=== PATIENT | male | born 1985 | race Caucasian/White ===

== ENCOUNTER 2017-12-18 11:29 | Emergency (ER) | payer SELFPAY ==
[2017-12-18] MEDS ORDERED: NACL 0.9% 1000 ML 1,000 ML ONE (11:40)
[2017-12-18] MEDS ORDERED: DECADRON IV ONE (11:42)
[2017-12-18] MEDS ORDERED: BENADRYL IV ONE (11:42)
[2017-12-18] MEDS ORDERED: NACL 0.9% 1000 ML 1,000 ML IV ONE ×2 (11:43→11:44)
[2017-12-18] MEDS ORDERED: S2 RACEPINEPHRINE 2.25% IH ONE (11:43)
[2017-12-18] MEDS ORDERED: PEPCID IV ONE (11:43)
--- NOTE | 2017-12-18 11:51 | Emergency Department Report ---
HPI - General Time Seen by Provider: 12/18/17 11:42 - HPI HPI: Room 23 The patient is a 32-year-old male presenting with chief complaint of allergic reaction to a bee sting. The patient was stung on his abdomen by a bee just prior to arrival. Patient began complaining of feeling bad as though his throat was closing so his friend transported him to the emergency department. When asked what is bothering him the patient replies he is having difficulty breathing. Patient also complains of chest pain Location: [See above] Duration: Just prior to arrival Quality: [See above] Severity: Moderate Modifying factors: [see above] Context: [see above] Mode of transportation: [not driving] ED Past Medical Hx - Past Medical History Previous Medical History?: No - Surgical History Past Surgical History?: No - Family History Family history: no significant - Social History Smoking Status: Never Smoker - Medications Home Medications: Home Medications Medication Instructions Recorded Confirmed Last Taken Type EPINEPHrine [Epipen 2-Vazquez] 0.3 mg IM ONCE PRN #0.6 ml 12/18/17 Unknown Rx Famotidine [Pepcid] 20 mg PO BID #6 tablet 12/18/17 Unknown Rx Prednisone [predniSONE 10 mg 10 mg PO .TAPER #1 tab.ds.pk 12/18/17 Unknown Rx (6-Day Pack, 21 Tabs)] diphenhydrAMINE [Benadryl CAP] 50 mg PO Q6HR #24 capsule 12/18/17 Unknown Rx ED Review of Systems ROS: Stated complaint: BEE STING ALLERGIC Other details as noted in HPI ENT: other (difficulty breathing) Respiratory: shortness of breath Cardiovascular: chest pain Skin: change in color Physical Exam - Physical Exam Vital Signs: Vital Signs 12/18/17 12/18/17 12/18/17 11:32 11:45 12:00 Temperature Pulse Rate 64 67 Respiratory 14 23 Rate Blood Pressure 111/48 99/54 O2 Sat by Pulse 95 100 100 Oximetry 12/18/17 12/18/17 12/18/17 12:02 12:15 12:30 Temperature 97.9 F Pulse Rate 74 72 80 Respiratory 25 H 18 22 Rate Blood Pressure 88/63 112/66 110/63 O2 Sat by Pulse 100 100 100 Oximetry Physical Exam: GENERAL: The patient is well-developed well-nourished male lying on stretcher appearing flushed. [] HEENT: Normocephalic. Atraumatic. Extraocular motions are intact. Patient has moist mucous membranes. NECK: Supple. Trachea midline. No stridor CHEST/LUNGS: Clear to auscultation. There is no respiratory distress noted. HEART/CARDIOVASCULAR: Regular. There is no tachycardia. There is no gallop rub or murmur. ABDOMEN: Abdomen is soft, nontender. Patient has normal bowel sounds. There is no abdominal distention. SKIN: Sting site visualized, no stinger present. There is no diaphoresis. NEURO: The patient is awake, alert, and oriented. The patient is cooperative. The patient has normal speech MUSCULOSKELETAL: There is no evidence of acute injury. ED Course - Reevaluation(s) Reevaluation #1: 12/18/17 12:10 Patient states he feels better Reevaluation #2: 12/18/17 13:50 Patient states he feels well and has no complaints. Strong warnings given ED Medical Decision Making - Lab Data Result diagrams: 12/18/17 11:49 12/18/17 11:49 Laboratory Tests 12/18/17 12/18/17 12/18/17 11:49 11:49 11:49 WBC 10.1 RBC 5.11 H Hgb 16.5 H Hct 48.7 H MCV 95 H MCH 32 MCHC 34 RDW 13.6 Plt Count 259 Lymph % (Auto) 34.9 [place] % (Auto) 5.0 Eos % (Auto) 1.0 Baso % (Auto) 0.4 Lymph # 3.5 [place] # 0.5 Eos # 0.1 Baso # 0.0 Seg Neutrophils % 58.7 Seg Neutrophils # 5.9 Sodium 140 Potassium 3.7 Chloride 100.0 Carbon Dioxide 19 L Anion Gap 25 BUN 18 Creatinine 1.1 Estimated GFR > 60 BUN/Creatinine Ratio 16 Glucose 193 H Calcium 9.3 Total Creatine Kinase 56 CK-MB (CK-2) < 1.0 CK-MB (CK-2) Rel Index 1.7 Troponin T < 0.010 - EKG Data -: EKG Interpreted by Me EKG shows normal: sinus rhythm Rate: normal - EKG Data When compared to previous EKG there are: previous EKG unavailable Interpretation: other (no ischemic changes seen) - Radiology Data Radiology results: image reviewed (chest x-ray, lateral soft tissue neck x-ray) interpreted by me: Chest x-ray-no focal infiltrates, no pneumothorax Lateral soft tissue neck x-ray-no prevertebral swelling, no evidence of epiglottitis - Differential Diagnosis allergic reaction, anaphylaxis Critical care attestation.: If time is entered above; I have spent that time in minutes in the direct care of this critically ill patient, excluding procedure time. ED Disposition Clinical Impression: Allergic reaction to bee sting, Hymenoptera sting Disposition: TO HOME OR SELFCARE Is pt being admited?: No Does the pt Need Aspirin: No Condition: Stable Instructions: Anaphylaxis (ED), Urticaria (ED) Additional Instructions: Return to the emergency department immediately should you develop worsening symptoms, fever, inability to tolerate food or liquid or any other concerns. Prescriptions: diphenhydrAMINE [Benadryl CAP] 50 mg PO Q6HR #24 capsule EPINEPHrine [Epipen 2-Vazquez] 0.3 mg IM ONCE PRN #0.6 ml PRN Reason: Shortness Of Breath Famotidine [Pepcid] 20 mg PO BID #6 tablet Prednisone [predniSONE 10 mg (6-Day Pack, 21 Tabs)] 10 mg PO .TAPER #1 tab.ds.pk Referrals: PRIMARY CARE,MD [Primary Care Provider] - 3-5 Days GEN JENSEN MD [Staff Physician] - 3-5 Days (Dr. Jensen is an pupil personnel services director. Please follow up with her for further evaluation) Time of Disposition: 13:54
[2017-12-18 12:13] LABS: Basophils % (Auto) 0.4 % (0.0-1.8); Eosinophils # (Auto) 0.1 K/mm3 (0.0-0.4); Hematocrit 48.7 % (35.5-45.6); Hemoglobin 16.5 gm/dl (11.8-15.2); Lymphocytes # (Auto) 3.5 K/mm3 (1.2-5.4); Lymphocytes % (Auto) 34.9 % (13.4-35.0); Mean Corpuscular HGB Conc 34 % (32-34); Mean Corpuscular Hemoglobin 32 pg (28-32); Mean Corpuscular Volume 95 fl (84-94); Monocytes # (Auto) 0.5 K/mm3 (0.0-0.8); Platelet Count 259 K/mm3 (140-440); Red Blood Count 5.11 M/mm3 (3.65-5.03); Red Cell Distribution Width 13.6 % (13.2-15.2)
[2017-12-18 12:32] LABS: BUN/Creatinine Ratio 16; Blood Urea Nitrogen 18 mg/dL (9-20); Calcium 9.3 mg/dL (8.4-10.2); Hemolysis Index 53
[2017-12-18 12:37] LABS: Creatine Kinase MB < 1.0 ng/mL (0.0-4.0)
--- NOTE | 2017-12-18 14:02 | XRay Report ---
AP AND LATERAL SOFT TISSUES OF THE NECK: History: Allergic reaction. The contour of the upper airway appears within normal limits. The epiglottis is not enlarged. No prevertebral soft tissue swelling is apparent. No mass density or foreign body is evident. IMPRESSION: Normal study.
--- NOTE | 2017-12-18 14:02 | XRay Report ---
AP CHEST: HISTORY: Chest pain, allergic reaction AP view of the chest demonstrates a normal mediastinal and cardiac contour with clear lungs and normal bony and soft tissue structures. IMPRESSION: Unremarkable AP chest.
[2017-12-18 14:41] VITALS: BP 114/70
== END 2017-12-18 14:40 | disposition home or self-care (01) ==
LOC: ED 11:29
DX: T63.441A Toxic effect of venom of bees, accidental (unintentional), initial encounter (principal); Y92.89 Other specified places as the place of occurrence of the external cause
CPT/HCPCS: 36415; 70360; 71045; 80048; 82550; 82553; 84484; 85025; 93005; 93010; 96374; 96375; 99284; J1100; J1200; J7030; 96361